=== PATIENT | male | born 1965 | race American Indian/Alaskan Native ===

== ENCOUNTER 2017-11-18 01:40 | Inpatient (IN) | payer MEDICARE ==
--- NOTE | 2017-11-18 02:05 | Emergency Department Report ---
ED Chest Pain HPI - General Stated Complaint: CHEST PAIN Time Seen by Provider: 11/18/17 01:44 Source: patient Limitations: No Limitations - History of Present Illness Initial Comments: Patient here for evaluation of chest pain somewhat similar to chest pain he had when he was admitted in early November 2017. He was a little bit sharper went into his left arm he denies any exertional chest pain, +history of cocaine use, had a negative Cardiolite study in early November. Does have some reproducible chest wall pain, here on [address] [facility] c/o retrosternal cp, no calf pain or swelling, no fever no abd c/o MD Complaint: chest pain -: Gradual, hour(s) Onset: during rest, during exertion Pain Location: left chest, epigastric Pain Radiation: LUE Severity: mild, moderate Quality: tightness, sharp Consistency: intermittent Worsens With: nothing re: denies: diaphoresis, dyspnea, sense of impending doom Other Symptoms: denies: cough, fever, syncope, rash, leg swelling, palpitations - Related Data Home Medications Medication Instructions Recorded Confirmed Last Taken ALPRAZolam [Xanax] 1 mg PO TID 11/11/17 11/11/17 Unknown Duloxetine HCl [DULoxetine] 60 mg QDAY 11/11/17 11/11/17 Unknown Pregabalin [Lyrica] 75 mg PO BID 11/11/17 11/11/17 Unknown traZODone [Desyrel] 100 mg PO QHS 11/11/17 11/11/17 Unknown Previous Rx's Medication Instructions Recorded Last Taken Type Acetaminophen [Acetaminophen TAB] 650 mg PO Q4H PRN tablet 11/15/17 Unknown Rx OLANzapine [ZyPREXA] 5 mg PO HS tablet 11/15/17 Unknown Rx Allergies Allergy/AdvReac Type Severity Reaction Status Date / Time No Known Allergies Allergy Verified 11/10/17 01:42 Heart Score - HEART Score History: Slightly suspicious EKG: Non-specific Age: 45-65 Risk factors: 1-2 risk factors Troponin: < normal limit HEART Score: 3 ED Review of Systems ROS: Stated complaint: CHEST PAIN Other details as noted in HPI Comment: All other systems reviewed and negative Constitutional: denies: diaphoresis, fever, malaise ENT: denies: dental pain, hearing loss, epistaxis Respiratory: denies: shortness of breath, SOB with exertion, SOB at rest, stridor, wheezing Cardiovascular: chest pain. denies: palpitations, dyspnea on exertion, orthopnea, edema, syncope, paroxysmal nocturnal dyspnea Gastrointestinal: denies: abdominal pain, nausea, vomiting, diarrhea, constipation, hematemesis, melena, hematochezia Musculoskeletal: denies: joint swelling, arthralgia, myalgia Neurological: denies: numbness, paresthesias, confusion, vertigo ED Past Medical Hx - Past Medical History Hx Hypertension: Yes Hx Psychiatric Treatment: Yes Hx HIV: Yes Additional medical history: Cardiac stents, HIV, Hepatitis C - Surgical History Additional Surgical History: right wrist - Social History Smoking Status: Current Every Day Smoker - Medications Home Medications: Home Medications Medication Instructions Recorded Confirmed Last Taken Type ALPRAZolam [Xanax] 1 mg PO TID 11/11/17 11/11/17 Unknown History Duloxetine HCl [DULoxetine] 60 mg QDAY 11/11/17 11/11/17 Unknown History Pregabalin [Lyrica] 75 mg PO BID 11/11/17 11/11/17 Unknown History traZODone [Desyrel] 100 mg PO QHS 11/11/17 11/11/17 Unknown History Acetaminophen [Acetaminophen TAB] 650 mg PO Q4H PRN tablet 11/15/17 Unknown Rx OLANzapine [ZyPREXA] 5 mg PO HS tablet 11/15/17 Unknown Rx ED Physical Exam - General General appearance: alert, anxious - Head Head exam: Present: atraumatic, normocephalic - Eye Eye exam: Present: normal appearance, PERRL, EOMI - ENT ENT exam: Present: normal exam, normal orophraynx, mucous membranes moist - Neck Neck exam: Present: normal inspection. Absent: tenderness, meningismus - Respiratory Respiratory exam: Present: normal lung sounds bilaterally, chest wall tenderness. Absent: respiratory distress, wheezes, rales, rhonchi, stridor, accessory muscle use, decreased breath sounds, prolonged expiratory - Cardiovascular Cardiovascular Exam: Present: regular rate, normal heart sounds. Absent: rubs, gallop - GI/Abdominal GI/Abdominal exam: Present: soft. Absent: distended, tenderness, guarding, rebound, mass, bruit, pulsatile mass - Extremities Exam Extremities exam: Present: normal capillary refill. Absent: pedal edema, joint swelling, calf tenderness - Back Exam Back exam: Present: normal inspection. Absent: CVA tenderness (L), muscle spasm , paraspinal tenderness, vertebral tenderness - Neurological Exam Neurological exam: Present: alert, oriented X3, CN II-XII intact. Absent: motor sensory deficit - Skin Skin exam: Absent: cyanosis, diaphoretic, erythema, urticaria, vesicles, petechiae, pallor, abrasion, ecchymosis ED Course Vital Signs 11/18/17 11/18/17 01:57 02:05 Temperature 98.8 F 98.2 F Pulse Rate 64 Respiratory 20 Rate Blood Pressure 121/82 O2 Sat by Pulse 99 Oximetry JONAH score - Jonah Score Age > 65: (0) No Aspirin use within the Past 7 Days: (0) No 3 or more CAD Risk Factors: (0) No 2 or more Angina events in past 24 hrs: (1) Yes Known CAD with more than 50% Stenosis: (0) No Elevated Cardiac Markers: (0) No ST Deviation Greater than 0.5mm: (1) Yes JONAH Score: 2 ED Medical Decision Making - Lab Data Result diagrams: 11/18/17 02:53 11/18/17 02:53 - EKG Data When compared to previous EKG there are: no significant change 11/18/17 04:30 ekg unchanged from previous, likely early repol, initial trop is neg but given pt's persistant intermitent cp , case d/w dr vargas for admit for r/o and possible further interveion, pt had asa and is pain free. - Radiology Data Radiology results: report reviewed - Medical Decision Making Patient will need admitted for further evaluation case was discussed with Dr. vargas given the nature of the patient's persistent chest pain. We will go and admitted to telemetry for further evaluation chest pain Critical care attestation.: If time is entered above; I have spent that time in minutes in the direct care of this critically ill patient, excluding procedure time. ED Disposition Clinical Impression: Chest pain Disposition: OP ADMIT IP TO THIS HOSP Is pt being admited?: Yes Condition: Stable Instructions: Chest Pain (ED) Referrals: PRIMARY CARE, [Primary Care Provider] - 3-5 Days Time of Disposition: 04:33
[2017-11-18] MEDS ORDERED: MORPHINE IV ONE (03:12)
[2017-11-18] MEDS ORDERED: ZOFRAN IV ONE (03:12)
[2017-11-18 03:20] LABS: Basophils % (Auto) 0.7 % (0.0-1.8); Eosinophils % (Auto) 0.8 % (0.0-4.3); Hematocrit 44.8 % (35.5-45.6); Hemoglobin 14.8 gm/dl (11.8-15.2); Lymphocytes % (Auto) 33.6 % (13.4-35.0); Mean Corpuscular HGB Conc 33 % (32-34); Mean Corpuscular Hemoglobin 30 pg (28-32); Mean Corpuscular Volume 92 fl (84-94); Monocytes # (Auto) 0.5 K/mm3 (0.0-0.8); Monocytes % (Auto) 8.9 % (0.0-7.3); Platelet Count 126 K/mm3 (140-440); Red Blood Count 4.88 M/mm3 (3.65-5.03); Red Cell Distribution Width 14.2 % (13.2-15.2)
[2017-11-18 03:28] LABS: Bacteria,Urine 1+ /HPF (Negative); Bilirubin,Urine NEG (Negative); Blood,Urine NEG (Negative); Calcium Oxalate Crystals,Urine 2+; Color,Urine Yellow (Yellow); Mucus,Urine FEW /HPF; Nitrite,Urine NEG (Negative); Protein,Urine <15 mg/dL mg/dL (Negative); Urobilinogen,Urine < 2.0 mg/dL (<2.0)
[2017-11-18 03:30] LABS: Amphetamine Screen,Urine PRESUMPTIVE NEGATIVE; Benzodiazepines Screen,Urine PRESUMPTIVE NEGATIVE; Cannabinoid Screen,Urine PRESUMPTIVE NEGATIVE; Cocaine Screen,Urine PRESUMPTIVE NEGATIVE; Methadone Screen,Urine PRESUMPTIVE NEGATIVE; Opiate Screen,Urine PRESUMPTIVE NEGATIVE
[2017-11-18 03:59] LABS: Alanine Aminotransferase 17 units/L (7-56); Albumin 4.3 g/dL (3.9-5); BUN/Creatinine Ratio 21; Blood Urea Nitrogen 19 mg/dL (9-20); Calcium 9.2 mg/dL (8.4-10.2); Hemolysis Index 22; Lipase 34 units/L (13-60)
--- NOTE | 2017-11-18 04:58 | XRay Report ---
FINAL REPORT PROCEDURE: XR CHEST 1V AP TECHNIQUE: Chest radiograph anteroposterior view. CPT 35757 HISTORY: chest pain COMPARISON: No prior studies are available for comparison. FINDINGS: Heart: Normal. Mediastinum/Vessels: Normal. Lungs/Pleural space: Lungs are clear and expanded. There are no infiltrates, effusions or pneumothoraces per. Bony thorax: No acute osseous abnormality. Life support devices: None. IMPRESSION: No acute cardiopulmonary abnormality.
[2017-11-18] MEDS: MORPHINE IV PRN ×3 (08:48→21:07)
--- NOTE | 2017-11-18 10:31 | History and Physical Report ---
History of Present Illness Date of examination: 11/18/17 Date of admission: 11/18/17 04:33 Chief complaint: Chest pain 1 day duration History of present illness: Patient is a 52-year-old gentleman who has a history of HIV, hepatitis C that has been treated, depression, spinal stenosis and was recently discharged from this hospital about 4 days ago, presented today with complaint of chest pain when nutrition. 6/10 in severity, radiating into the left shoulder, intermittent, aggravated by movement of his chest. Has associated shortness of breath but no diaphoresis. Denies any fever, nausea vomiting, orthopnea or paroxysmal nocturnal dyspnea. Patient had a stress test 3 days ago that was negative. He has had cardiac catheterizations over 3 times in the past 6 years. The last one was about 2 years ago. All were normal. On admission to the emergency department, initial set of cardiac enzymes were normal. Chest x- ray was unremarkable. Admission was requested by the emergency room doctor for further evaluation. Past History Past Medical History: other (HIV, spinal stenosis, hepatitis C that has been cleared, depression) Past Surgical History: Other (multiple surgeries in the upper extremities.) Social history: lives with family. denies: smoking, alcohol abuse Family history: other (mental illness in his auncle) Medications and Allergies Allergies Allergy/AdvReac Type Severity Reaction Status Date / Time No Known Allergies Allergy Verified 11/10/17 01:42 Home Medications Medication Instructions Recorded Confirmed Last Taken Type ALPRAZolam [Xanax] 1 mg PO TID 11/11/17 11/11/17 Unknown History Duloxetine HCl [DULoxetine] 60 mg QDAY 11/11/17 11/11/17 Unknown History Pregabalin [Lyrica] 75 mg PO BID 11/11/17 11/11/17 Unknown History traZODone [Desyrel] 100 mg PO QHS 11/11/17 11/11/17 Unknown History Acetaminophen [Acetaminophen TAB] 650 mg PO Q4H PRN tablet 11/15/17 Unknown Rx OLANzapine [ZyPREXA] 5 mg PO HS tablet 11/15/17 Unknown Rx Active Meds: Active Medications Morphine Sulfate (Morphine) 2 mg IV Q6H PRN PRN Reason: Pain, Moderate (4-6) Last Admin: 11/18/17 08:48 Dose: 2 mg Review of systems Constitutional: Well Nouridhed and Well developed. Head: NC/ AT Eyes: Denies any visual impairments. No discharge from the eyes Nose: Denies any rhinorrhea or epistaxis Throats: Denies any post nasal drainage. Ears: Denies any hearing deficits Cardiovascular system: Denies any chest pain, shortness of breath, orthopnea, paroxysmal nocturnal dyspnea, or palpitation. Respiratory system: Denies any cough, difficulty breathing, wheezing, pleuritic chest pain, Gastrointestinal system: Denies any abdominal pain, nausea vomiting, hematemesis or melena. Neurological system: Denies any headache, slurred speech, facial droop, lateralizing weakness Genitalia system: Denies any dysuria, urinary frequency or urgency, urethral discharge Skin: No rashes, hyperpigmented spots. Hematological: Denies any cervical tenderness hemorrhages or petechia. Immunological: Denies any multiple septic spots, Lymphatic: Denies any generalized lymphadenopathy. Endocrine: Denies any polyuria, polydipsia, polyphagia. No heat or cold intolerance. Musculoskeletal system: No joint pain or swelling. Psych: No visual, tactile, auditory or hallucination. Denies any suicidal or homicidal ideation Exam - Physical Exam Narrative exam: Constitutional: Well-nourished well-developed. In no distress Head: Normocephalic atraumatic Eyes: Pupils are equal round and reactive to light Nose: No enlarged turbinates, no septal deviation. Mouth: Moist mucous membranes. Neck: Supple no thyromegaly. No bruit. No JVD Heart: Regular rate and rhythm, S1-S2 abnormal. No rubs murmurs or gallop Lungs: Clear to auscultation bilaterally no rales or rhonchi Abdomen: Soft nontender breath sounds where present. Extremities: No edema no cyanosis and no clubbing. Neuro: Alert oriented -3 no focal sensory or motor deficit. Skin: No rashes no hyperemic spots - Constitutional Vitals: Temp Pulse Resp BP Pulse Ox 98.0 F 64 18 108/69 96 11/18/17 08:49 11/18/17 08:00 11/18/17 08:48 11/18/17 08:00 11/18/17 08:00 Results - Labs CBC & Chem 7: 11/18/17 02:53 11/18/17 02:53 Labs: Abnormal lab results 11/18/17 11/18/17 Range/Units 02:53 02:53 Plt Count 126 L (140-440) K/mm3 [place] % (Auto) 8.9 H (0.0-7.3) % Glucose 116 H (75-100) mg/dL - Imaging and Cardiology Chest x-ray: report reviewed Assessment and Plan We will admit to medical floor -Chest pain likely costochondritis Serial cardiac enzymes. Commence patient on oxygen, nitroglycerin, aspirin and morphine. - Depression Continue with antidepressant home medication - History of chronic pain from spinal stenosis Plan medication - History of HIV Continue with antiretroviral medications - DVT Prophylaxis with Lovenox
[2017-11-18] MEDS ORDERED: SODIUM CHLORIDE FLUSH SYRINGE 10 ML IV PRN (10:41)
[2017-11-18] MEDS ORDERED: NITRO-BID 2% TP ONE (10:41)
[2017-11-18 11:43] LABS: Basophils % (Auto) 0.6 % (0.0-1.8); Eosinophils # (Auto) 0.1 K/mm3 (0.0-0.4); Eosinophils % (Auto) 1.5 % (0.0-4.3); Hemoglobin 14.3 gm/dl (11.8-15.2); Lymphocytes # (Auto) 2.6 K/mm3 (1.2-5.4); Lymphocytes % (Auto) 45.6 % (13.4-35.0); Mean Corpuscular HGB Conc 33 % (32-34); Mean Corpuscular Hemoglobin 30 pg (28-32); Mean Corpuscular Volume 92 fl (84-94); Monocytes # (Auto) 0.4 K/mm3 (0.0-0.8); Monocytes % (Auto) 7.7 % (0.0-7.3); Platelet Count 142 K/mm3 (140-440); Red Blood Count 4.79 M/mm3 (3.65-5.03); Red Cell Distribution Width 14.1 % (13.2-15.2)
[2017-11-18 11:49] LABS: BUN/Creatinine Ratio 20; Blood Urea Nitrogen 16 mg/dL (9-20); Calcium 8.8 mg/dL (8.4-10.2); Hemolysis Index 15
--- NOTE | 2017-11-18 13:10 | Consultation ---
History of Present Illness Consult date: 11/18/17 Past History Past Medical History: other (HIV, spinal stenosis, hepatitis C that has been cleared, depression) Past Surgical History: Other (multiple surgeries in the upper extremities.) Social history: lives with family. denies: smoking, alcohol abuse Family history: other (mental illness in his auncle) Medications and Allergies Allergies Allergy/AdvReac Type Severity Reaction Status Date / Time No Known Allergies Allergy Verified 11/10/17 01:42 Home Medications Medication Instructions Recorded Confirmed Last Taken Type ALPRAZolam [Xanax] 1 mg PO TID 11/11/17 11/18/17 Unknown History Duloxetine HCl [DULoxetine] 60 mg QDAY 11/11/17 11/18/17 Unknown History Pregabalin [Lyrica] 75 mg PO BID 11/11/17 11/18/17 Unknown History traZODone [Desyrel] 100 mg PO QHS 11/11/17 11/18/17 Unknown History Acetaminophen [Acetaminophen TAB] 650 mg PO Q4H PRN tablet 11/15/17 11/18/17 Unknown Rx OLANzapine [ZyPREXA] 5 mg PO HS tablet 11/15/17 11/18/17 Unknown Rx Active Meds: Active Medications Aspirin (Ecotrin) 325 mg PO QDAY ROBYN Famotidine (Pepcid) 20 mg IV QDAY ROBYN Dextrose/Sodium Chloride (D5/0.45ns) 1,000 mls @ 100 mls/hr IV DIRECT ROBYN Morphine Sulfate (Morphine) 2 mg IV Q6H PRN PRN Reason: Pain, Moderate (4-6) Last Admin: 11/18/17 08:48 Dose: 2 mg Naproxen (Naprosyn) 375 mg PO BID ROBYN Sodium Chloride (Sodium Chloride Flush Syringe 10 Ml) 10 ml IV PRN PRN PRN Reason: LINE FLUSH Physical Examination Vital Signs Pulse Resp Pulse Ox 59 L 11 L 99 11/18/17 01:52 11/18/17 01:52 11/18/17 01:52 Results 11/18/17 11:16 11/18/17 11:16 Cardiac Enzymes 11/18/17 Range/Units 02:53 AST 19 (5-40) units/L CBC 11/18/17 11/18/17 Range/Units 02:53 11:16 WBC 6.1 5.8 (4.5-11.0) K/mm3 RBC 4.88 4.79 (3.65-5.03) M/mm3 Hgb 14.8 14.3 (11.8-15.2) gm/dl Hct 44.8 44.0 (35.5-45.6) % Plt Count 126 L 142 (140-440) K/mm3 Lymph # 2.0 2.6 (1.2-5.4) K/mm3 [place] # 0.5 0.4 (0.0-0.8) K/mm3 Eos # 0.0 0.1 (0.0-0.4) K/mm3 Baso # 0.0 0.0 (0.0-0.1) K/mm3 Comprehensive Metabolic Panel 11/18/17 11/18/17 Range/Units 02:53 11:16 Sodium 140 138 (137-145) mmol/L Potassium 4.2 4.0 (3.6-5.0) mmol/L Chloride 100.7 100.5 (98-107) mmol/L Carbon Dioxide 26 22 (22-30) mmol/L BUN 19 16 (9-20) mg/dL Creatinine 0.9 0.8 (0.8-1.5) mg/dL Glucose 116 H 115 H (75-100) mg/dL Calcium 9.2 8.8 (8.4-10.2) mg/dL AST 19 (5-40) units/L ALT 17 (7-56) units/L Alkaline Phosphatase 59 (35-129) units/L Total Protein 7.1 (6.3-8.2) g/dL Albumin 4.3 (3.9-5) g/dL Assessment and Plan full consult dictated- thx
[2017-11-18] MEDS: NAPROSYN PO SCH ×2 (13:11→23:44)
[2017-11-18] MEDS: PEPCID IV SCH (13:28)
[2017-11-18] MEDS: D5/0.45NS 1,000 ML IV SCH (15:29)
[2017-11-18] MEDS: DESYREL PO SCH (23:44)
[2017-11-19] MEDS: D5/0.45NS 1,000 ML IV SCH ×2 (01:07→12:56)
--- NOTE | 2017-11-19 03:28 | Consultation ---
CARDIOLOGY CONSULTATION REFERRING PHYSICIAN: Juan Manuel Toribio MD REASON FOR CONSULTATION: Advice and opinion regarding chest pain. HISTORY OF PRESENT ILLNESS: The patient is a 52-year-old gentleman with a history of HIV, hepatitis C, depression, spinal stenosis who presents with atypical chest pain, sharp anterior chest pain. He has a known abnormal EKG, seen in the Emergency Room and admitted by Dr. Toribio. He had had apparently 3 catheterizations over the past 6 years. Last one was about 2 years ago which was normal apparently. Initial set of cardiac enzymes is normal. He is seen at bedside, is chest pain free. He states it was very sharp, " It is resolved at this point. No shortness of breath. No fevers, chills, nausea or vomiting. No syncope or presyncope. PAST MEDICAL HISTORY: HIV, spinal stenosis, hepatitis C, depression. FAMILY HISTORY: Mental illness in his uncle. SOCIAL HISTORY: He denies smoking or alcohol abuse. ALLERGIES: No known drug, food, or environment allergies. MEDICATIONS: Inpatient and outpatient medications reviewed. REVIEW OF SYSTEMS: As per HPI. PHYSICAL EXAMINATION: VITAL SIGNS: Blood pressure is 110/70s, he is afebrile, tele reveals sinus rhythm, no dysrhythmias. O2 sat is 98% on room air. HEENT: PERRLA. Sclerae anicteric. NECK: Supple. No mass or JVD. CHEST: Clear to auscultation bilaterally. Good air movement. CARDIOVASCULAR: Regular S1, S2. ABDOMEN: Soft, nontender, nondistended. Normoactive bowel sounds in 4 quadrants. No mass or bruits. EXTREMITIES: No cyanosis, clubbing, edema. Good peripheral pulses. SKIN: Intact. No rashes. LABORATORY DATA: Serial EKGs are reviewed. He has mild ST elevation anteriorly, which may be repolarization. These have been consistent from his past EKGs. His UDS is negative. Cardiac enzymes are negative x 3. Stress test 2 weeks ago here showed no evidence of ischemia. ASSESSMENT: In summary, the patient is a 52-year-old -[place] gentleman with multiple comorbidities presents with atypical chest pain with baseline abnormal EKG, unchanged from prior. Three sets of negative cardiac enzymes. Continue aspirin. We will follow along with you. Apparently normal catheterization 2 years ago. We will try to obtain his records. Chronic pain and depression. Cycle cardiac enzymes. We will follow along. Watch for recurrent chest pain. Check an echocardiogram. Thank you for this consultation. I will be happy to follow along with you. JOB# [id number] DAVID/JESSE
[2017-11-19] MEDS ORDERED: TYLENOL ONE (09:51)
[2017-11-19] MEDS: ECOTRIN PO SCH (09:53)
[2017-11-19] MEDS: PEPCID IV SCH (09:54)
[2017-11-19] MEDS: NAPROSYN PO SCH ×2 (09:54→22:15)
[2017-11-19] MEDS ORDERED: XANAX PO PRN (10:25)
[2017-11-19] MEDS ORDERED: TYLENOL PO PRN (10:27)
--- NOTE | 2017-11-19 11:31 | Progress Note ---
Assessment and Plan Still c cp with typical and atypical features ecg abnl ce neg Discussed options w him including invasive approach v. conservative approach. Risks/benefits/alternatives d/w pt at length. [facility] Objective Vital Signs Temp Pulse Resp Resp BP BP Pulse Ox 11/19/17 09:50 98.6 F 60 18 98/69 97 11/19/17 04:29 97.7 F 52 L 20 96/62 95 11/19/17 00:08 97.9 F 56 L 20 98/65 95 11/18/17 23:44 20 11/18/17 22:00 54 L 20 11/18/17 21:07 20 11/18/17 17:45 98.0 F 62 18 108/70 97 11/18/17 17:42 98.0 F 59 L 18 98 11/18/17 15:00 58 L 12 100/73 11/18/17 14:50 58 L 14 109/66 11/18/17 14:40 57 L 13 109/66 11/18/17 14:30 65 15 109/66 11/18/17 14:00 54 L 14 109/66 11/18/17 13:27 98.0 F 16 98 11/18/17 13:00 56 L 14 110/79 11/18/17 12:00 60 13 108/73 11/18/17 11:36 57 L - Labs and Meds CBC 11/18/17 Range/Units 11:16 WBC 5.8 (4.5-11.0) K/mm3 RBC 4.79 (3.65-5.03) M/mm3 Hgb 14.3 (11.8-15.2) gm/dl Hct 44.0 (35.5-45.6) % Plt Count 142 (140-440) K/mm3 Lymph # 2.6 (1.2-5.4) K/mm3 [place] # 0.4 (0.0-0.8) K/mm3 Eos # 0.1 (0.0-0.4) K/mm3 Baso # 0.0 (0.0-0.1) K/mm3 Comprehensive Metabolic Panel 11/18/17 Range/Units 11:16 Sodium 138 (137-145) mmol/L Potassium 4.0 (3.6-5.0) mmol/L Chloride 100.5 (98-107) mmol/L Carbon Dioxide 22 (22-30) mmol/L BUN 16 (9-20) mg/dL Creatinine 0.8 (0.8-1.5) mg/dL Glucose 115 H (75-100) mg/dL Calcium 8.8 (8.4-10.2) mg/dL
--- NOTE | 2017-11-19 17:15 | Progress Note ---
Subjective Date of service: 11/19/17 Principal diagnosis: Chest pain, depression, HIV Interval history: -Chest pain likely costochondritis However patient has abnormal EKG. Serial cardiac enzymes. Continue with on oxygen, nitroglycerin, aspirin and morphine. 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 For cath in am - Depression Continue with antidepressant home medication - History of chronic pain from spinal stenosis Pain medication - History of HIV Continue with home antiretroviral medications - Tobacco abuse, Tobacco cessation counseling was done - DVT Prophylaxis with Lovenox Objective - Constitutional Vitals: Vital Signs - 12hr 11/19/17 09:50 Temperature 98.6 F Pulse Rate 60 Respiratory 18 Rate Blood Pressure 98/69 [Right] O2 Sat by Pulse 97 Oximetry - Labs CBC & Chem 7: 11/18/17 11:16 11/18/17 11:16
[2017-11-19] MEDS: HABITROL TD SCH (21:00)
[2017-11-19] MEDS ORDERED: DESYREL PO SCH (22:00)
[2017-11-19] MEDS: DESYREL PO SCH (22:15)
[2017-11-20 06:06] LABS: Hematocrit 43.8 % (35.5-45.6); Hemoglobin 14.1 gm/dl (11.8-15.2); Mean Corpuscular HGB Conc 32 % (32-34); Mean Corpuscular Hemoglobin 30 pg (28-32); Mean Corpuscular Volume 92 fl (84-94); Platelet Count 140 K/mm3 (140-440); Red Blood Count 4.79 M/mm3 (3.65-5.03)
[2017-11-20 06:13] LABS: BUN/Creatinine Ratio 13; Blood Urea Nitrogen 13 mg/dL (9-20); Calcium 8.5 mg/dL (8.4-10.2); Hemolysis Index 9
[2017-11-20 06:15] LABS: INR 0.88 (0.87-1.13); Partial Thromboplastin Time 31.6 Sec. (24.2-36.6)
[2017-11-20] MEDS ORDERED: NACL 0.9% 1000 ML 1,000 ML IV SCH (07:00)
[2017-11-20] MEDS ORDERED: HEPARIN/NS 5000 UNIT/500ML(CATH LAB) 1,000 ML IR ONE (08:12)
[2017-11-20] MEDS ORDERED: HEPARIN 10,000 UNITS/10 ML ONE (08:12)
[2017-11-20] MEDS ORDERED: CALAN ONE (08:13)
[2017-11-20] MEDS ORDERED: NITROGLYCERIN SYRINGE 3 ML ONE (08:13)
[2017-11-20] MEDS ORDERED: XYLOCAINE 2% INFILTRATI ONE (08:13)
[2017-11-20] MEDS ORDERED: ECOTRIN PO ONE (08:22)
[2017-11-20] MEDS: VERSED ONE ×2 (08:51→08:55)
[2017-11-20] MEDS: SUBLIMAZE ONE ×2 (08:51→08:55)
--- NOTE | 2017-11-20 09:18 | Progress Note ---
Assessment and Plan [facility] this am via rra: 1. Normal coronaries 2. Normal lv fxn 3. No as 4. Normal root aortography rec: medical management rf mod march d/c after noon standard radial care thanks Subjective Date of service: 11/20/17 Principal diagnosis: Chest pain, depression, HIV Objective Vital Signs Temp Pulse Resp Resp BP BP Pulse Ox 11/20/17 08:10 68 18 95/57 96 11/20/17 06:00 59 L 11/20/17 05:25 97.7 F 59 L 20 100/65 97 11/20/17 00:38 97.6 F 65 18 93/60 97 11/19/17 22:15 20 11/19/17 22:00 65 20 11/19/17 20:32 97.9 F 74 20 99/62 96 11/19/17 17:45 72 99 11/19/17 12:10 98.6 F 68 96/54 11/19/17 09:50 98.6 F 60 18 98/69 97 - Labs and Meds Coagulation 11/20/17 Range/Units 05:10 PT 12.4 (12.2-14.9) Sec. INR 0.88 (0.87-1.13) APTT 31.6 (24.2-36.6) Sec. CBC 11/20/17 Range/Units 05:10 WBC 6.4 (4.5-11.0) K/mm3 RBC 4.79 (3.65-5.03) M/mm3 Hgb 14.1 (11.8-15.2) gm/dl Hct 43.8 (35.5-45.6) % Plt Count 140 (140-440) K/mm3 Comprehensive Metabolic Panel 11/20/17 Range/Units 05:10 Sodium 139 (137-145) mmol/L Potassium 4.6 (3.6-5.0) mmol/L Chloride 100.9 (98-107) mmol/L Carbon Dioxide 27 (22-30) mmol/L BUN 13 (9-20) mg/dL Creatinine 1.0 (0.8-1.5) mg/dL Glucose 91 (75-100) mg/dL Calcium 8.5 (8.4-10.2) mg/dL
[2017-11-20 09:21] VITALS: BP 90/58
[2017-11-20] MEDS: NAPROSYN PO SCH (10:06)
[2017-11-20] MEDS: ECOTRIN PO SCH (10:07)
[2017-11-20] MEDS: HABITROL TD SCH (10:07)
[2017-11-20] MEDS: PEPCID IV SCH (10:07)
--- NOTE | 2017-11-20 12:32 | Cardiac Catherization Report ---
REFERRING PHYSICIAN: Juan Manuel Toribio MD. INDICATION FOR PROCEDURE: The patient is a pleasant 52-year-old -[place] gentleman with a significantly abnormal EKG with borderline anterior ST elevation and Wellens T waves, chest pain with atypical and typical features, negative stress test last week, represents to the hospital with recurrent chest pain, difficult adding significant antianginals given his borderline blood pressure. Given continued chest pain and aforementioned history we decided to proceed with left heart catheterization. Risks, benefits and alternatives were discussed at length prior to obtaining informed consent. PROCEDURE: The patient was brought to catheterization lab in a postabsorptive state, prepped and draped in sterile. Michael's test in right hand was normal. A 2 mL of 2% lidocaine was used to anesthetize the right wrist. A standard 6-[place]ux[place] hydrophilic sheath used to cannulate the right radial artery via modified Seldinger technique. All exchanges performed to exchange a J-tip guidewire. JL3.5 catheter used to engage the left main. No dampening or ventricularization. Cineangiography performed in all projections. JR4 catheter used to cross the aortic valve under fluoroscopic guidance. Left ventriculography performed in 30 JAMIL and 30 [place] projections via hand injections, catheter flushed. Manual pullback performed with continuous pressure monitoring. Catheter used to engage the right coronary. No dampening or ventricularization. Cineangiography performed in all projections. Next, given persistent chest pain, root aortography was performed in the SETS[place] projection with power injector. Next, catheter removed from the body over a wire, sheath removed. Manual pressure used to achieve hemostasis. Moderate sedation was induced with fentanyl and versed. A total of 20 minutes of moderate sedation was administered and directly monitored by pa. DATA: Aortic pressure is 120/60, LV pressure is 120, LVEDP of 15 mmHg. Left ventriculography revealed normal systolic performance with estimated ejection fraction of 55% to 60%. No evidence of aortic stenosis. CORONARY ANATOMY: This is a right dominant system. Right coronary is a moderate sized vessel, courses AV groove, distally bifurcates in the posterior descending, posterolateral branch. No discrete stenosis identified. Left main is a moderate sized vessel with no significant disease, bifurcates left anterior descending and left circumflex and left circumflex, moderate sized vessel, courses AV groove. No significant disease. LAD is a moderate sized vessel, no significant disease, courses anterior intergroove, wraps around the apex, a medium length bridge is noted in the mid LAD. No evidence of diastolic collapse in this intramyocardial segment. Root aortography reveals normal contour, normal caliber, no evidence of dissection, aortic insufficiency or penetrating aortic ulcer, apparent great vessel anatomy. CONCLUSIONS: 1. No angiographic evidence of significant epicardial coronary disease in this right dominant system. 2. Normal left ventricular systolic performance. 3. No evidence of aortic stenosis. 4. Normal root aortography. It should be noted that there is an intermediate length in mid LAD intramyocardial bridge without evidence of diastolic collapse. Continue medical management and risk factor modification. The patient is clinically stable, okay for discharge once right radial site is stable. Needs to employ lifestyle changes, discussed with him at length. Follow up with us in the office. JOB# [id number] DAVID/JESSE BOWEN
--- NOTE | 2017-11-20 13:36 | Discharge Summary ---
Providers - Providers Date of Admission: 11/18/17 04:33 Date of discharge: 11/20/17 Attending physician: BLAIR PORTILLO 11/18/17 10:41 Consult to Cardiology [CONS] Routine Consulting Provider: RODNEY ASHRAF Reason For Exam: chest pin 11/18/17 10:45 Consult to Physician [CONS] Routine Consulting Provider: CLAY JARAMILLO Reason For Exam: Chest pain Place consult to:: Jerrica Notified:: PLEASE CALL MD IN AM Was contact made?: Yes If yes, spoke with:: DR Yanni ASHRAF Time called:: 12:15 11/20/17 09:15 Consult to Cardiac Rehabilitation [CONS] Routine Reason For Exam: Cardiac Rehab Evaluation Primary care physician: [facility] [employer] Hospitalization Reason for admission: chest pain Condition: Stable Pertinent studies: serial Amee Procedures: Cardiac cath. Hospital course: Patient is a 52-year-old gentleman who has a history of HIV, hepatitis C that has been treated, depression, spinal stenosis and was recently discharged from this hospital about 4 days ago, presented today with complaint of chest pain when nutrition. 6/10 in severity, radiating into the left shoulder, intermittent, aggravated by movement of his chest. Has associated shortness of breath but no diaphoresis. Denies any fever, nausea vomiting, orthopnea or paroxysmal nocturnal dyspnea. Patient had a stress test 3 days ago that was negative. He has had cardiac catheterizations over 3 times in the past 6 years. The last one was about 2 years ago. All were normal. On admission to the emergency department, initial set of cardiac enzymes were normal. Chest x- ray was unremarkable. Admission was requested by the emergency room doctor for further evaluation. Cardiology consult was made. Result was negative. Chest pain resolved. Was therefore discharged. Disposition: TO HOME OR SELFCARE Core Measure Documentation - Palliative Care Palliative Care/ Comfort Measures: Not Applicable - Core Measures Any of the following diagnoses?: none Exam - Physical Exam Narrative exam: Constitutional: Well-nourished well-developed. In no distress Head: Normocephalic atraumatic Eyes: Pupils are equal round and reactive to light Nose: No enlarged turbinates, no septal deviation. Mouth: Moist mucous membranes. Neck: Supple no thyromegaly. No bruit. No JVD Heart: Regular rate and rhythm, S1-S2 abnormal. No rubs murmurs or gallop Lungs: Clear to auscultation bilaterally no rales or rhonchi Abdomen: Soft nontender breath sounds where present. Extremities: No edema no cyanosis and no clubbing. Neuro: Alert oriented -3 no focal sensory or motor deficit. Skin: No rashes no hyperemic spots - Constitutional Vitals: Temp Pulse Resp BP Pulse Ox 97.7 F 68 18 95/57 96 11/20/17 05:25 11/20/17 08:10 11/20/17 08:10 11/20/17 08:10 11/20/17 08:10 Plan Activity: advance as tolerated Weight Bearing Status: Weight Bear as Tolerated Diet: regular Follow up with: PRIMARY CARE,MD [Primary Care Provider] - 3-5 Days Prescriptions: ALPRAZolam [Xanax TAB] 1 mg PO Q8H PRN #21 tablet PRN Reason: Anxiety ALPRAZolam [Xanax] 1 mg PO TID #21 tablet Duloxetine HCl [DULoxetine] 60 mg PO QDAY #30 capsule. Naproxen [Naprosyn TAB] 375 mg PO BID #30 tablet Nicotine [Habitrol] 21 mg TD QDAY #30 patch OLANzapine [ZyPREXA] 5 mg PO HS #30 tablet Pregabalin [Lyrica] 75 mg PO BID #30 capsule traZODone [Desyrel] 100 mg PO QHS #30 tablet traZODone [Desyrel] 100 mg PO QHS #30 tablet
== END 2017-11-20 14:47 | disposition home or self-care (01) | DRG 287 ==
LOC: ED 01:40 → 4A 04:33
PROVIDERS: ADMIT Internal Medicine; ATTEND Family Medicine
PROC: 4A023N7 Measurement of Cardiac Sampling and Pressure, Left Heart, Percutaneous Approach (ICD-10-PCS; principal; 2017-11-20)
PROC: B2111ZZ Fluoroscopy of Multiple Coronary Arteries using Low Osmolar Contrast (ICD-10-PCS; 2017-11-20)
PROC: B2151ZZ Fluoroscopy of Left Heart using Low Osmolar Contrast (ICD-10-PCS; 2017-11-20)
DX: R07.9 Chest pain, unspecified (principal); F32.9 Major depressive disorder, single episode, unspecified; B19.20 Unspecified viral hepatitis C without hepatic coma; I10 Essential (primary) hypertension; F17.200 Nicotine dependence, unspecified, uncomplicated; G89.29 Other chronic pain; Z79.899 Other long term (current) drug therapy; Z95.5 Presence of coronary angioplasty implant and graft
CPT/HCPCS: 36415; 71045; 80048; 80053; 80307; 81001; 83036; 83690; 84484; 85025; 85027; 85610; 85730; 93005; 93010; 93306; 93458; 93567; 96374; 96375; C1894; J1644; J2250; J2270; J2405; J3010; J7030; Q9967

== ENCOUNTER 2018-07-02 11:27 | Inpatient (IN) | payer MEDICARE ==
[2018-07-02] MEDS ORDERED: ASPIRIN PO ONE (12:00)
[2018-07-02 12:21] LABS: Eosinophils % (Auto) 0.8 % (0.0-4.3); Hemoglobin 15.6 gm/dl (11.8-15.2); Lymphocytes # (Auto) 1.6 K/mm3 (1.2-5.4); Lymphocytes % (Auto) 32.8 % (13.4-35.0); Mean Corpuscular HGB Conc 34 % (32-34); Mean Corpuscular Hemoglobin 31 pg (28-32); Mean Corpuscular Volume 91 fl (84-94); Monocytes # (Auto) 0.5 K/mm3 (0.0-0.8); Red Blood Count 5.08 M/mm3 (3.65-5.03)
[2018-07-02 12:33] LABS: BUN/Creatinine Ratio 16; Blood Urea Nitrogen 13 mg/dL (9-20); Calcium 8.6 mg/dL (8.4-10.2); Hemolysis Index 68
[2018-07-02 12:51] LABS: Platelet Count 138 K/mm3 (140-440)
--- NOTE | 2018-07-02 13:14 | Emergency Department Report ---
ED Chest Pain HPI - General Chief Complaint: Chest Pain Stated Complaint: CHEST PAIN Time Seen by Provider: 07/02/18 13:13 Source: family, EMS Mode of arrival: Ambulatory Limitations: No Limitations - History of Present Illness Initial Comments: Patient to the emergency room complaining of chest pain. Patient said he uses cocaine and marijuana. Chest pain and is supposed a displaced left upper extremity. MD Complaint: chest pain -: Sudden Onset: during rest Pain Location: substernal Pain Radiation: LUE Severity: moderate Severity scale (0 -10): 5 Quality: aching, heaviness Consistency: constant Improves With: nothing Worsens With: nothing re: denies: nausea, vomting Other Symptoms: denies: cough, fever Treatments Prior to Arrival: none Aspirin use within the Past 7 Days: (0) No - Related Data On Oral Contraceptives: No Previous Rx's Medication Instructions Recorded Last Taken Type ALPRAZolam [Xanax TAB] 1 mg PO Q8H PRN #21 tablet 11/20/17 Unknown Rx ALPRAZolam [Xanax] 1 mg PO TID #21 tablet 11/20/17 Unknown Rx Duloxetine HCl [DULoxetine] 60 mg PO QDAY #30 capsule. 11/20/17 Unknown Rx Naproxen [Naprosyn TAB] 375 mg PO BID #30 tablet 11/20/17 Unknown Rx Nicotine [Habitrol] 21 mg TD QDAY #30 patch 11/20/17 Unknown Rx OLANzapine [ZyPREXA] 5 mg PO HS #30 tablet 11/20/17 Unknown Rx Pregabalin [Lyrica] 75 mg PO BID #30 capsule 11/20/17 Unknown Rx traZODone [Desyrel] 100 mg PO QHS #30 tablet 11/20/17 Unknown Rx traZODone [Desyrel] 100 mg PO QHS #30 tablet 11/20/17 Unknown Rx Allergies Allergy/AdvReac Type Severity Reaction Status Date / Time No Known Allergies Allergy Verified 11/10/17 01:42 Heart Score - HEART Score History: Moderately suspicious EKG: Non-specific Age: 45-65 Risk factors: 1-2 risk factors Troponin: < normal limit HEART Score: 4 - Critical Actions Critical Actions: 4-6 pts:12-16.6% risk of adverse cardiac event. Should be admitted ED Review of Systems ROS: Stated complaint: CHEST PAIN Other details as noted in HPI Comment: All other systems reviewed and negative Constitutional: denies: chills, fever Eyes: denies: eye pain, eye discharge ENT: denies: ear pain Respiratory: denies: cough, shortness of breath Cardiovascular: chest pain. denies: palpitations Endocrine: no symptoms reported Gastrointestinal: denies: abdominal pain, nausea, vomiting Genitourinary: denies: urgency, dysuria Musculoskeletal: denies: back pain, joint swelling Skin: denies: rash, lesions, change in color Neurological: denies: headache, weakness, numbness Psychiatric: denies: anxiety, depression Hematological/Lymphatic: denies: easy bleeding, easy bruising ED Past Medical Hx - Past Medical History Hx Hypertension: Yes Hx CVA: Yes (no deficits) Hx Psychiatric Treatment: Yes (depression) Hx HIV: Yes (last check-up 01/2018) Additional medical history: HIV, Hepatitis C-treated and in remission,Angina - Surgical History Additional Surgical History: right wrist - Social History Smoking Status: Current Every Day Smoker Substance Use Type: Alcohol, Other - Medications Home Medications: Home Medications Medication Instructions Recorded Confirmed Last Taken Type ALPRAZolam [Xanax TAB] 1 mg PO Q8H PRN #21 tablet 11/20/17 Unknown Rx ALPRAZolam [Xanax] 1 mg PO TID #21 tablet 11/20/17 Unknown Rx Duloxetine HCl [DULoxetine] 60 mg PO QDAY #30 capsule.dr 11/20/17 Unknown Rx Naproxen [Naprosyn TAB] 375 mg PO BID #30 tablet 11/20/17 Unknown Rx Nicotine [Habitrol] 21 mg TD QDAY #30 patch 11/20/17 Unknown Rx OLANzapine [ZyPREXA] 5 mg PO HS #30 tablet 11/20/17 Unknown Rx Pregabalin [Lyrica] 75 mg PO BID #30 capsule 11/20/17 Unknown Rx traZODone [Desyrel] 100 mg PO QHS #30 tablet 11/20/17 Unknown Rx traZODone [Desyrel] 100 mg PO QHS #30 tablet 11/20/17 Unknown Rx ED Physical Exam - General Limitations: No Limitations General appearance: alert, in no apparent distress - Head Head exam: Present: atraumatic, normocephalic, normal inspection - Eye Eye exam: Present: normal appearance, PERRL, EOMI Pupils: Present: normal accommodation, irregular - ENT ENT exam: Present: normal exam, normal orophraynx, mucous membranes moist - Neck Neck exam: Present: normal inspection, full ROM. Absent: tenderness - Respiratory Respiratory exam: Present: normal lung sounds bilaterally. Absent: respiratory distress, wheezes, rales, rhonchi, stridor - Cardiovascular Cardiovascular Exam: Present: regular rate, normal rhythm, normal heart sounds - GI/Abdominal GI/Abdominal exam: Present: soft, normal bowel sounds. Absent: distended, tenderness, guarding, rebound, rigid - Extremities Exam Extremities exam: Present: normal inspection, full ROM, normal capillary refill - Back Exam Back exam: Present: normal inspection, full ROM. Absent: tenderness - Neurological Exam Neurological exam: Present: alert, oriented X3, CN II-XII intact - Psychiatric Psychiatric exam: Present: normal affect, normal mood - Skin Skin exam: Present: warm, dry, intact, normal color. Absent: rash ED Course Vital Signs 07/02/18 07/02/18 07/02/18 11:54 12:57 13:00 Temperature 98.4 F Pulse Rate 61 65 67 Respiratory 18 22 19 Rate Blood Pressure 109/74 122/87 O2 Sat by Pulse 99 99 100 Oximetry 07/02/18 07/02/18 07/02/18 13:10 14:00 15:00 Temperature Pulse Rate 76 74 Respiratory 18 12 19 Rate Blood Pressure 122/87 106/66 O2 Sat by Pulse 99 81 L 96 Oximetry 07/02/18 07/02/18 07/02/18 16:00 17:00 18:00 Temperature Pulse Rate 70 65 76 Respiratory 16 20 17 Rate Blood Pressure 106/66 112/75 113/83 O2 Sat by Pulse 98 99 98 Oximetry - Reevaluation(s) Reevaluation #1: 07/02/18 17:53 Patient will be admitted by Dr. Meng. JONAH score - Jonah Score Age > 65: (0) No Aspirin use within the Past 7 Days: (0) No 3 or more CAD Risk Factors: (0) No 2 or more Angina events in past 24 hrs: (1) Yes Known CAD with more than 50% Stenosis: (0) No Elevated Cardiac Markers: (0) No ST Deviation Greater than 0.5mm: (1) Yes JONAH Score: 2 ED Medical Decision Making - Lab Data Result diagrams: 07/02/18 12:02 07/02/18 12:02 - EKG Data -: EKG Interpreted by Me EKG shows normal: sinus rhythm Rate: normal (60) - EKG Data When compared to previous EKG there are: previous EKG unavailable Interpretation: nonspecific ST-T wave cyrus, LVH, other (ST elevation in V3. Probably early repolarization. No reciprocal change in the inferior leads.) - Radiology Data Radiology results: report reviewed, image reviewed - Medical Decision Making Chest Pain. Critical care attestation.: If time is entered above; I have spent that time in minutes in the direct care of this critically ill patient, excluding procedure time. ED Disposition Clinical Impression: Cocaine abuse, Marijuana abuse, Abnormal EKG Chest pain Qualifiers: Chest pain type: unspecified Qualified Code(s): R07.9 - Chest pain, unspecified Disposition: -09 OP ADMIT IP TO THIS HOSP Is pt being admited?: Yes Does the pt Need Aspirin: Yes Condition: Stable Time of Disposition: 17:30
[2018-07-02] MEDS ORDERED: NACL 0.9% 1000 ML 1,000 ML IV ONE ×2 (13:52→16:30)
[2018-07-02] MEDS ORDERED: ASPIRIN ONE (14:13)
--- NOTE | 2018-07-02 14:39 | XRay Report ---
AP CHEST: HISTORY: chest pain AP view of the chest demonstrates a normal mediastinal and cardiac contour with clear lungs and normal bony and soft tissue structures. IMPRESSION: Unremarkable AP chest.
[2018-07-02 15:07] LABS: Alanine Aminotransferase 9 units/L (7-56); Bilirubin,Direct < 0.2 mg/dL (0-0.2)
[2018-07-02 15:18] LABS: INR 0.92 (0.87-1.13); Partial Thromboplastin Time 29.6 Sec. (24.2-36.6)
[2018-07-02] MEDS ORDERED: TYLENOL PO ONE (16:32)
[2018-07-02 17:11] LABS: Bilirubin,Urine NEG (Negative); Blood,Urine NEG (Negative); Color,Urine Yellow (Yellow); Protein,Urine <15 mg/dL mg/dL (Negative); Urobilinogen,Urine < 2.0 mg/dL (<2.0); WBC,Urine < 1.0 /HPF (0.0-6.0)
[2018-07-02 17:24] LABS: Amphetamine Screen,Urine PRESUMPTIVE NEGATIVE; Benzodiazepines Screen,Urine PRESUMPTIVE NEGATIVE; Methadone Screen,Urine PRESUMPTIVE NEGATIVE; Opiate Screen,Urine PRESUMPTIVE NEGATIVE
[2018-07-02 17:37] LABS: Cannabinoid Screen,Urine PRESUMPTIVE POSITIVE; Cocaine Screen,Urine PRESUMPTIVE POSITIVE
--- NOTE | 2018-07-02 17:57 | History and Physical Report ---
History of Present Illness Chief complaint: My chest hurts History of present illness: 52 YO Male with HIV, HCV, Depression, Spinal Stenosis, Nicotine Dependence, CVA presents to ED for evaluation. Pt states that he has experienced pain in his chest over the past 1 day with persistent symptoms over the same time frame. Pt states that pain was 8/10, substernal, constant, crushing, radiates to left arm , not worsened with exertion or relieved with rest, associated with shortness of breath. Pt is currently undergoing detoxification from polysubstance abuse- including cocaine. Pt last used cocaine 2 days ago. Pt denes fever, chills, palpitations, NVD, Trauma, Hemoptysis, BRBPR, recent ill contacts, or skin rash. Pt seen and evaluated in ED and found to have symptoms consistent with ACS. Past History Past Medical History: hepatitis, HIV/AIDS, hypertension, stroke Past Surgical History: Other (wrist surgery) Social history: , smoking Family history: hypertension Medications and Allergies Allergies Allergy/AdvReac Type Severity Reaction Status Date / Time No Known Allergies Allergy Verified 11/10/17 01:42 Home Medications Medication Instructions Recorded Confirmed Last Taken Type ALPRAZolam [Xanax TAB] 1 mg PO Q8H PRN #21 tablet 11/20/17 07/02/18 Unknown Rx ALPRAZolam [Xanax] 1 mg PO TID #21 tablet 11/20/17 07/02/18 Unknown Rx Duloxetine HCl [DULoxetine] 60 mg PO QDAY #30 capsule. 11/20/17 07/02/18 Unknown Rx Naproxen [Naprosyn TAB] 375 mg PO BID #30 tablet 11/20/17 07/02/18 Unknown Rx Nicotine [Habitrol] 21 mg TD QDAY #30 patch 11/20/17 07/02/18 Unknown Rx OLANzapine [ZyPREXA] 5 mg PO HS #30 tablet 11/20/17 07/02/18 Unknown Rx Pregabalin [Lyrica] 75 mg PO BID #30 capsule 11/20/17 07/02/18 Unknown Rx traZODone [Desyrel] 100 mg PO QHS #30 tablet 11/20/17 07/02/18 Unknown Rx traZODone [Desyrel] 100 mg PO QHS #30 tablet 11/20/17 07/02/18 Unknown Rx Review of Systems Constitutional: no weight loss, no weight gain, no fever, no chills Ears, nose, mouth and throat: no ear discharge, no tinnitis, no decreased hearing, no nasal congestion Cardiovascular: chest pain, shortness of breath, no orthopnea, no palpitations, no rapid/irregular heart beat, no dyspnea on exertion, no paroxysmal nocturnal dyspnea Respiratory: no cough, no cough with sputum, no excessive sputum, no hemoptysis Gastrointestinal: no nausea, no vomiting, no diarrhea, no constipation Genitourinary Male: no hematuria, no flank pain, no discharge, no urinary frequency, no urinary hesitancy Rectal: no pain, no incontinence, no bleeding Musculoskeletal: no neck stiffness, no neck pain, no shooting arm pain, no arm numbness/tingling, no low back pain, no shooting leg pain Integumentary: no rash, no pruritis, no redness, no sores, no wounds Neurological: no paralysis, no weakness, no parathesias, no numbness, no tingling, no seizures, no syncope Psychiatric: no anxiety, no memory loss, no change in sleep habits, no sleep disturbances, no insomnia, no hypersomnia Endocrine: no cold intolerance, no heat intolerance, no polyphagia, no excessive thirst, no polydipsia, no polyuria, no nocturia Hematologic/Lymphatic: no easy bruising, no easy bleeding, no lymphadenopathy, no lymphedema Allergic/Immunologic: no urticaria, no allergic rhinitis, no wheezing, no persistent infections, no anaphylaxis Exam - Constitutional Vitals: Temp Pulse Resp BP Pulse Ox 98.4 F 70 16 106/66 98 07/02/18 11:54 07/02/18 16:00 07/02/18 16:00 07/02/18 16:00 07/02/18 16:00 General appearance: Present: mild distress - EENT Eyes: Present: PERRL ENT: hearing intact, clear oral mucosa - Neck Neck: Present: supple, normal ROM - Respiratory Respiratory effort: normal Respiratory: bilateral: CTA - Cardiovascular Heart Sounds: Present: S1 & S2. Absent: rub, click - Extremities Extremities: pulses symmetrical, No edema Peripheral Pulses: within normal limits - Abdominal General gastrointestinal: Present: soft, non-tender, non-distended, normal bowel sounds Male genitourinary: Present: normal - Integumentary Integumentary: Present: clear, warm, dry - Musculoskeletal Musculoskeletal: gait normal, strength equal bilaterally - Psychiatric Psychiatric: appropriate mood/affect, intact judgment & insight - Neurologic Neurologic: CNII-XII intact, moves all extremities Results - Labs CBC & Chem 7: 07/02/18 12:02 07/02/18 12:02 Labs: Abnormal lab results 07/02/18 07/02/18 07/02/18 Range/Units 12:02 12:19 12:19 RBC 5.08 H (3.65-5.03) M/mm3 Hgb 15.6 H (11.8-15.2) gm/dl Hct 46.0 H (35.5-45.6) % Plt Count 138 L (140-440) K/mm3 [place] % (Auto) 10.0 H (0.0-7.3) % Salicylates < 0.3 L (2.8-20.0) mg/dL Acetaminophen < 5.0 L (10.0-30.0) ug/mL Assessment and Plan - Patient Problems (1) ACS (acute coronary syndrome) Current Visit: Yes Status: Acute Plan to address problem: Admit to Telemetry, serial cardiac enzymes, ekg, telemetry, Ddimer, BNP, Chest x ray, PPI therapy,supportive care, morphine, supplemental oxygen, nitro, aspirin. (2) Cocaine dependence Current Visit: Yes Status: Acute Qualifiers: Substance use status: in remission Qualified Code(s): F14.21 - Cocaine dependence, in remission Plan to address problem: Outpatient F/U, Pt currently undergoing detox (3) HIV disease Current Visit: Yes Status: Acute Plan to address problem: Chronic, Outpatient ID F/U care, continue current therapy (4) Nicotine dependence Current Visit: Yes Status: Acute Qualifiers: Nicotine product type: cigarettes Plan to address problem: Smoking cessation counseling, supportive care. (5) Depression Current Visit: Yes Status: Acute Qualifiers: Depression Type: unspecified Qualified Code(s): F32.9 - Major depressive disorder, single episode, unspecified Plan to address problem: Outpatient psychiatry F/U, (6) DVT prophylaxis Current Visit: Yes Status: Acute Plan to address problem: SCD to BLE while in bed.
[2018-07-02] MEDS ORDERED: ZOFRAN IV PRN (17:59)
[2018-07-02] MEDS ORDERED: TYLENOL PO PRN (17:59)
[2018-07-02] MEDS ORDERED: SODIUM CHLORIDE FLUSH SYRINGE 10 ML IV PRN ×2 (17:59→18:00)
[2018-07-02] MEDS ORDERED: NITROSTAT SL PRN (18:00)
[2018-07-02] MEDS ORDERED: XANAX PO PRN (18:01)
[2018-07-02] MEDS: XANAX PO SCH (20:59)
[2018-07-02] MEDS: NAPROSYN PO SCH (21:09)
[2018-07-02] MEDS: LYRICA PO SCH (21:09)
[2018-07-02] MEDS: PEPCID PO SCH (21:09)
[2018-07-02] MEDS ORDERED: DESYREL PO SCH ×2 (22:00)
[2018-07-02] MEDS: SODIUM CHLORIDE FLUSH SYRINGE 10 ML IV SCH (22:26)
[2018-07-03] MEDS: XANAX PO SCH (08:46)
[2018-07-03] MEDS ORDERED: NON-FORMULARY (Duloxetine Hcl [Duloxetine] 60 MG) PO SCH (10:00)
[2018-07-03] MEDS ORDERED: CYMBALTA PO SCH (10:00)
[2018-07-03] MEDS ORDERED: HABITROL TD SCH (10:00)
[2018-07-03] MEDS: NAPROSYN PO SCH (10:24)
[2018-07-03] MEDS: LYRICA PO SCH (10:25)
[2018-07-03] MEDS: PEPCID PO SCH (10:25)
[2018-07-03] MEDS: SODIUM CHLORIDE FLUSH SYRINGE 10 ML IV SCH (10:27)
--- NOTE | 2018-07-03 11:10 | Consultation ---
History of Present Illness Consult date: 07/03/18 Requesting physician: BETSY ESPINOZA Consult reason: chest pain History of present illness: The patient apparently received some Xanax and he is still quite drowsy, but arouses intermittently to answer questions. He claims that he has been experiencing a sharp substernal chest pain for the past 2 days. He could not characterize the pain in detail. He admits to using cocaine and marijuana on the day of onset of symptoms. Past History Past Medical History: hepatitis, HIV/AIDS, stroke Past Surgical History: Other (wrist surgery) Social history: , smoking Family history: hypertension Medications and Allergies Allergies Allergy/AdvReac Type Severity Reaction Status Date / Time No Known Allergies Allergy Verified 11/10/17 01:42 Home Medications Medication Instructions Recorded Confirmed Last Taken Type ALPRAZolam [Xanax TAB] 1 mg PO Q8H PRN #21 tablet 11/20/17 07/02/18 Unknown Rx ALPRAZolam [Xanax] 1 mg PO TID #21 tablet 11/20/17 07/02/18 Unknown Rx Duloxetine HCl [DULoxetine] 60 mg PO QDAY #30 capsule. 11/20/17 07/02/18 Unknown Rx Naproxen [Naprosyn TAB] 375 mg PO BID #30 tablet 11/20/17 07/02/18 Unknown Rx Nicotine [Habitrol] 21 mg TD QDAY #30 patch 11/20/17 07/02/18 Unknown Rx OLANzapine [ZyPREXA] 5 mg PO HS #30 tablet 11/20/17 07/02/18 Unknown Rx Pregabalin [Lyrica] 75 mg PO BID #30 capsule 11/20/17 07/02/18 Unknown Rx traZODone [Desyrel] 100 mg PO QHS #30 tablet 11/20/17 07/02/18 Unknown Rx traZODone [Desyrel] 100 mg PO QHS #30 tablet 11/20/17 07/02/18 Unknown Rx Active Meds: Active Medications Acetaminophen (Tylenol) 650 mg PO Q4H PRN PRN Reason: Pain MILD(1-3)/Fever >100.5/GONZALEZ Alprazolam (Xanax) 1 mg PO TID ROBYN Last Admin: 07/03/18 08:46 Dose: 1 mg Alprazolam (Xanax) 1 mg PO Q8H PRN PRN Reason: Anxiety Duloxetine HCl (Cymbalta) 60 mg PO QDAY [facility] Last Admin: 07/03/18 10:25 Dose: 60 mg Famotidine (Pepcid) 20 mg PO BID [facility] Last Admin: 07/03/18 10:25 Dose: 20 mg Naproxen (Naprosyn) 375 mg PO BID [facility] Last Admin: 07/03/18 10:24 Dose: 375 mg Nicotine (Habitrol) 21 mg TD QDAY [facility] Last Admin: 07/03/18 10:25 Dose: 21 mg Nitroglycerin (Nitrostat) 0.4 mg SL Q5M PRN PRN Reason: Chest Pain Olanzapine (Zyprexa) 5 mg PO HS [facility] Last Admin: 07/02/18 21:09 Dose: 5 mg Ondansetron HCl (Zofran) 4 mg IV Q8H PRN PRN Reason: Nausea And Vomiting Pregabalin (Lyrica) 75 mg PO BID [facility] Last Admin: 07/03/18 10:25 Dose: 75 mg Sodium Chloride (Sodium Chloride Flush Syringe 10 Ml) 10 ml IV BID [facility] Last Admin: 07/03/18 10:27 Dose: 10 ml Sodium Chloride (Sodium Chloride Flush Syringe 10 Ml) 10 ml IV PRN PRN PRN Reason: LINE FLUSH Trazodone HCl (Desyrel) 100 mg PO QHS [facility] Last Admin: 07/02/18 21:08 Dose: 100 mg Review of Systems Constitutional: no fever, no chills Ears, nose, mouth and throat: no ear pain, no ear discharge, no hoarseness Cardiovascular: chest pain, no lightheadedness, no shortness of breath Respiratory: no cough, no hemoptysis, no shortness of breath Gastrointestinal: no abdominal pain, no nausea, no vomiting, no diarrhea, no constipation Genitourinary Male: no dysuria, no urinary frequency Rectal: no pain, no bleeding Musculoskeletal: no neck stiffness, no neck pain, no myalgias Integumentary: no rash, no pruritis Neurological: no weakness, no parathesias, no headaches Endocrine: no cold intolerance, no heat intolerance Hematologic/Lymphatic: no easy bruising, no easy bleeding Allergic/Immunologic: no urticaria, no wheezing Physical Examination Vital Signs Last Vital Signs Temp 98.4 F 07/03/18 04:00 Pulse 58 L 07/03/18 04:00 Resp 12 07/03/18 04:00 BP 95/68 07/03/18 04:00 Pulse Ox 98 07/03/18 04:00 General appearance: no acute distress HEENT: Positive: EOMI, Normocephaly, Mucus Membranes Moist Neck: Positive: neck supple, trachea midline Cardiac: Positive: Reg Rate and Rhythm, S1/S2 Lungs: Positive: clear to auscultation Neuro: Positive: Grossly Intact Abdomen: Positive: Soft, Active Bowel Sounds. Negative: Tender Skin: Positive: Clear. Negative: Rash Musculoskeletal: Normal Range of Motion Extremities: Present: normal. Absent: edema Results 07/02/18 12:02 07/02/18 12:02 Cardiac Enzymes 07/02/18 Range/Units 14:23 AST 15 (5-40) units/L Coagulation 07/02/18 Range/Units 14:23 PT 12.9 (12.2-14.9) Sec. INR 0.92 (0.87-1.13) APTT 29.6 (24.2-36.6) Sec. CBC 07/02/18 Range/Units 12:02 WBC 4.9 (4.5-11.0) K/mm3 RBC 5.08 H (3.65-5.03) M/mm3 Hgb 15.6 H (11.8-15.2) gm/dl Hct 46.0 H (35.5-45.6) % Plt Count 138 L (140-440) K/mm3 Lymph # 1.6 (1.2-5.4) K/mm3 [place] # 0.5 (0.0-0.8) K/mm3 Eos # 0.0 (0.0-0.4) K/mm3 Baso # 0.0 (0.0-0.1) K/mm3 Comprehensive Metabolic Panel 07/02/18 07/02/18 Range/Units 12:02 14:23 Sodium 137 (137-145) mmol/L Potassium 4.4 (3.6-5.0) mmol/L Chloride 103.6 (98-107) mmol/L Carbon Dioxide 24 (22-30) mmol/L BUN 13 (9-20) mg/dL Creatinine 0.8 (0.8-1.5) mg/dL Glucose 82 (75-100) mg/dL Calcium 8.6 (8.4-10.2) mg/dL Direct Bilirubin < 0.2 (0-0.2) mg/dL Indirect Bilirubin 0.2 mg/dL AST 15 (5-40) units/L ALT 9 (7-56) units/L Alkaline Phosphatase 63 (35-129) units/L Total Protein 6.3 (6.3-8.2) g/dL Albumin 4.0 (3.9-5) g/dL - Imaging and Cardiology EKG: image reviewed EKG interpretations - Telemetry EKG Rhythm: Sinus Rhythm - EKG Sinus rhythms and dysrhythmias: sinus rhythm Assessment and Plan Lexiscan stress MPI. - Patient Problems (1) Chest pain Current Visit: Yes Status: Acute Qualifiers: Chest pain type: unspecified Qualified Code(s): R07.9 - Chest pain, unspecified (2) HIV disease Current Visit: Yes Status: Acute (3) Marijuana abuse Current Visit: Yes Status: Acute (4) Cocaine abuse Current Visit: Yes Status: Chronic
--- NOTE | 2018-07-03 11:26 | Discharge Summary ---
Providers - Providers Date of Admission: 07/02/18 17:59 Attending physician: LISET RAMON MD 07/02/18 Consult to Cardiac Rehabilitation [CONS] Routine Reason For Exam: Phase I 07/02/18 18:00 Consult to Cardiology [CONS] Routine Consulting Provider: CECELIA OCONNOR Reason For Exam: acs Primary care physician: BOBBIN CLEANER Hospitalization Reason for admission: CHEST PAIN Condition: Stable Hospital course: 52 YO Male with HIV, HCV, Depression, Spinal Stenosis, Nicotine Dependence, CVA presents to ED for evaluation. Pt states that he has experienced pain in his chest over the past 1 day with persistent symptoms over the same time frame. Pt states that pain was 8/10, substernal, constant, crushing, radiates to left arm , not worsened with exertion or relieved with rest, associated with shortness of breath. Pt is currently undergoing detoxification from polysubstance abuse- including cocaine. Pt last used cocaine 2 days ago. Pt denes fever, chills, palpitations, NVD, Trauma, Hemoptysis, BRBPR, recent ill contacts, or skin rash. Pt seen and evaluated in ED and found to have symptoms consistent with ACS. Push for reevaluation by me stated that he just moved out from [place] here to visit his mother. He denies he denies any department program. He is drowsy initially 1 cardiology evaluated and once he got down to have his stress test he started screaming stating that he must eat BEFORE ANY TEST and within the past. He'll begin to the hospital because he is hungry. When asked where he lives he states that he is homeless but he moved from [place] because his mother believes he has been here for 2 days has not gone to see his mother. ALL THIS APPEAR TO BE FALSES CONSIDERING THAT HIS SON CAME TO GET HIM Counselling on complaint with treatment, tobacco cessation and substance abuse cessation. On discharge patient now states that he came from [place]. [place] confirms but states that has been discharged and his son came to pick him up. (1) Atypical chest pain secondary to GERD (2) Cocaine dependence (3) HIV disease (4) Nicotine dependence (5) Depression Disposition: DC-01 TO HOME OR SELFCARE Time spent for discharge: 35 mins Core Measure Documentation - Palliative Care Palliative Care/ Comfort Measures: Not Applicable - Core Measures Any of the following diagnoses?: none - VTE Discharge Requirements Deep Vein Thrombosis/Pulmonary Embolism Present on Admission: No Exam - Physical Exam Narrative exam: VITAL SIGNS: Reviewed. GENERAL: The patient appeared well nourished and normally developed. Vital signs as documented. HEAD: No signs of head trauma. EYES: Pupils are equal. Extraocular motions intact. EARS: Hearing grossly intact. MOUTH: Oropharynx is normal. NECK: No adenopathy, no JVD. CHEST: Chest with clear breath sounds bilaterally. No wheezes, rales, or rhonchi. CARDIAC: Regular rate and rhythm. S1 and S2, without murmurs, gallops, or rubs. VASCULAR: No Edema. Peripheral pulses normal and equal in all extremities. ABDOMEN: Soft, without detectable tenderness. No sign of distention. No rebound or guarding, and no masses palpated. Bowel Sounds normal. MUSCULOSKELETAL: Good range of motion of all major joints. Extremities without clubbing, cyanosis or edema. NEUROLOGIC EXAM: Alert and oriented x 3. No focal sensory or strength deficits. Speech normal. Follows commands. PSYCHIATRIC: Mood normal. SKIN: No rash or lesions. - Constitutional Vitals: Temp Pulse Resp BP Pulse Ox 98.4 F 58 L 12 95/68 98 07/03/18 04:00 07/03/18 04:00 07/03/18 04:00 07/03/18 04:00 07/03/18 04:00 General appearance: Present: no acute distress, well-nourished - EENT Eyes: Present: PERRL, EOM intact ENT: hearing intact - Neck Neck: Present: supple, normal ROM - Respiratory Respiratory effort: normal Respiratory: bilateral: CTA - Cardiovascular Heart Sounds: Present: S1 & S2 - Extremities Extremities: no ischemia, pulses intact, pulses symmetrical, No edema, normal temperature, normal color, Full ROM Peripheral Pulses: within normal limits - Abdominal General gastrointestinal: Present: soft, non-tender, non-distended, normal bowel sounds - Integumentary Integumentary: Present: clear, warm, dry - Musculoskeletal Musculoskeletal: strength equal bilaterally - Psychiatric Psychiatric: intact judgment & insight, cooperative, agitated (ABOUT NOT BEING FEED) - Neurologic Neurologic: CNII-XII intact - Allied Health Allied health notes reviewed: nursing Plan Activity: advance as tolerated, fall precautions Diet: low fat Special Instructions: record daily weights, record daily BP diary, smoking cessation, other (STOP COCAIN USE) Follow up with: PRIMARY CARE, [Primary Care Provider] - 3-5 Days CECELIA OCONNOR MD [Staff Physician] - 7 Days MIGUEL MILAN MD [Staff Physician] - 7 Days
[2018-07-03 15:37] VITALS: BP 92/63
== END 2018-07-03 16:28 | disposition home or self-care (01) | DRG 391 ==
LOC: ED 11:27 → 4A 17:59 → IMCU 23:51
PROVIDERS: ADMIT Internal Medicine; ATTEND Internal Medicine
DX: K21.9 Gastro-esophageal reflux disease without esophagitis (principal); B20 Human immunodeficiency virus [HIV] disease; I24.9 Acute ischemic heart disease, unspecified; F14.20 Cocaine dependence, uncomplicated; F32.9 Major depressive disorder, single episode, unspecified; M48.00 Spinal stenosis, site unspecified; Z86.73 Personal history of transient ischemic attack (TIA), and cerebral infarction without residual deficits; Z59.0 Homelessness; I10 Essential (primary) hypertension; Z82.49 Family history of ischemic heart disease and other diseases of the circulatory system; F17.200 Nicotine dependence, unspecified, uncomplicated; F17.210 Nicotine dependence, cigarettes, uncomplicated; Z86.19 Personal history of other infectious and parasitic diseases; F12.10 Cannabis abuse, uncomplicated; Z71.6 Tobacco abuse counseling; Z71.51 Drug abuse counseling and surveillance of drug abuser
CPT/HCPCS: 36415; 71045; 80048; 80074; 80307; 80320; 81001; 83880; 84484; 85025; 85379; 85610; 85730; 93005; 93010; G0480; J7030